=== PATIENT | female | born 1965 | race Caucasian/White ===

== ENCOUNTER 2017-11-24 11:46 | Emergency (ER) | payer OTHER ==
[2017-11-24 12:02] VITALS: BMI 27.7
--- NOTE | 2017-11-24 12:40 | PDOC ---
History of Present Illness - General History Source: Patient, Family Exam Limitations: No Limitations - History of Present Illness Initial Comments: 11/24/17 13:20 The patient is a 52 year old female with a significant PMH of diabetes, HTN, and hyperlipidemia (previously controlled with medications which were discontinued) who presents to the emergency department with epigastric pain and nausea beginning approximately 2 weeks ago. She describes her abdominal pain as localized in her epigastric region with no radiation, which is worse with eating. She also reports some intermittent diarrhea but denies vomiting. The patient denies fever, chills, and constipation. Denies chest pain, shortness of breath, headache and dizziness. Denies dysuria, frequency, urgency and hematuria. Allergies: NKA Past surgical history: None reported. Social history: No reported cigarette, alcohol, or drug use. PCP: Dr. Bourne <Marcel Loza - Last Filed: 11/24/17 13:20> <Triny Coronel - Last Filed: 11/24/17 16:45> <Wendy Goldman - Last Filed: 11/24/17 22:05> - General Chief Complaint: Pain, Acute Stated Complaint: ABD PAIN Time Seen by Provider: 11/24/17 12:37 Past History <Marcel Loza - Last Filed: 11/24/17 13:20> - Past Medical History COPD: No Diabetes: Yes HTN: Yes - Suicide/Smoking/Psychosocial Hx Smoking Status: No Smoking History: Never smoked Have you smoked in the past 12 months: No Number of Cigarettes Smoked Daily: 0 Hx Alcohol Use: No Drug/Substance Use Hx: No <Triny Coronel - Last Filed: 11/24/17 16:45> <Wendy Goldman - Last Filed: 11/24/17 22:05> - Past Medical History Allergies/Adverse Reactions: Allergies Allergy/AdvReac Type Severity Reaction Status Date / Time No Known Allergies Allergy Verified 11/24/17 12:02 Home Medications: Ambulatory Orders Chlorthalidone 25 mg PO DAILY 06/08/16 Lisinopril 5 mg PO DAILY 06/08/16 Metformin HCl 500 mg PO BID 06/08/16 Ranitidine HCl [Zantac] 150 mg PO DAILY 11/24/17 Review of Systems - Review of Systems Able to Perform ROS?: Yes Comments:: 11/24/17 13:20 GENERAL/CONSTITUTIONAL: No fever or chills. No weakness. HEAD, EYES, EARS, NOSE AND THROAT: No change in vision. No ear pain or discharge. No sore throat. CARDIOVASCULAR: No chest pain or shortness of breath. RESPIRATORY: No cough, wheezing, or hemoptysis. GASTROINTESTINAL: (+) Epigastric pain. (+) Nausea. (+) Diarrhea. No vomiting or constipation. GENITOURINARY: No dysuria, frequency, or change in urination. MUSCULOSKELETAL: No joint or muscle swelling or pain. No neck or back pain. SKIN: No rash NEUROLOGIC: No headache, vertigo, loss of consciousness, or change in strength/ sensation. ENDOCRINE: No increased thirst. No abnormal weight change. HEMATOLOGIC/LYMPHATIC: No anemia, easy bleeding, or history of blood clots. ALLERGIC/IMMUNOLOGIC: No hives or skin allergy. <Marcel Loza - Last Filed: 11/24/17 13:20> *Physical Exam - Vital Signs Last Vital Signs Temp Pulse Resp BP Pulse Ox 982 F H 115 H 16 140/79 95 11/24/17 11:59 11/24/17 11:59 11/24/17 11:59 11/24/17 11:59 11/24/17 11:59 <Marcel Loza - Last Filed: 11/24/17 13:20> - Vital Signs Last Vital Signs Temp Pulse Resp BP Pulse Ox 982 F H 115 H 16 140/79 95 11/24/17 11:59 11/24/17 11:59 11/24/17 11:59 11/24/17 11:59 11/24/17 11:59 - Physical Exam Comments: GENERAL: Awake, alert, and fully oriented. Tearful, appears anxious and uncomfortable. HEAD: No signs of trauma EYES: PERRLA, EOMI, sclera anicteric, conjunctiva clear ENT: Auricles normal inspection, hearing grossly normal, nares patent, oropharynx clear without exudates. Dry mucosa NECK: Normal ROM, supple, no lymphadenopathy, JVD, or masses LUNGS: Breath sounds equal, clear to auscultation bilaterally. No wheezes, and no crackles HEART: Regular rate and rhythm, normal S1 and S2, no murmurs, rubs or gallops ABDOMEN: Soft, +epigastric pain, normoactive bowel sounds. +Guarding, no rebound. No masses EXTREMITIES: Normal range of motion, no edema. No clubbing or cyanosis. No cords, erythema, or tenderness NEUROLOGICAL: Cranial nerves II through XII grossly intact. Normal speech, normal gait SKIN: Warm, Dry, normal turgor, no rashes or lesions noted. <Triny Coronel - Last Filed: 11/24/17 16:45> - Vital Signs Last Vital Signs Temp Pulse Resp BP Pulse Ox 98.0 F 82 18 136/76 96 11/24/17 16:30 11/24/17 16:30 11/24/17 16:30 11/24/17 16:30 11/24/17 16:30 <Wendy Goldman - Last Filed: 11/24/17 22:05> Heart Score/ECG Review - ECG Impressions Comment:: EKG read 14:22- NSR 86 bpm, no acute ST/T changes <Triny Coronel - Last Filed: 11/24/17 16:45> ED Treatment Course - Medications Given in the ED: ED Medications Discontinued Medications Generic Name Dose Route Start Last Admin Trade Name Freq PRN Reason Stop Dose Admin Acetaminophen 1,000 mg 11/24/17 12:51 11/24/17 13:17 Ofirmev Injection - IVPB 11/24/17 12:52 1,000 mg ONCE ONE Administration Ondansetron HCl 4 mg 11/24/17 12:50 11/24/17 13:17 Zofran Injection IVPUSH 11/24/17 12:51 4 mg ONCE ONE Administration <Marcel Loza - Last Filed: 11/24/17 13:20> - LABORATORY CBC & Chemistry Diagram: 11/24/17 12:52 11/24/17 12:52 <Triny Coronel - Last Filed: 11/24/17 16:45> - LABORATORY CBC & Chemistry Diagram: 11/24/17 12:52 11/24/17 12:52 - ADDITIONAL ORDERS Additional order review: Laboratory Results 11/24/17 11/24/17 13:20 12:52 Sodium 134 L Potassium 3.9 Chloride 97 L Carbon Dioxide 26 Anion Gap 11 BUN 11 Creatinine 0.7 Creat Clearance w eGFR > 60 Random Glucose 204 H Calcium 9.3 Total Bilirubin 0.3 D AST 28 ALT 47 Alkaline Phosphatase 90 Creatine Kinase 86 Troponin I < 0.02 Total Protein 8.0 Albumin 3.9 Lipase 177 Urine Color Colorless Urine Appearance Clear Urine pH 8.0 Ur Specific [place] 1.005 Urine Protein Negative Urine Glucose (UA) 3+ H Urine Ketones Negative Urine Blood Negative Urine Nitrite Negative Urine Bilirubin Negative Urine Urobilinogen Negative Ur Leukocyte Esterase Trace Urine WBC (Auto) 1 Urine RBC (Auto) 2 Ur Epithelial Cells Rare 11/24/17 12:52 RBC 4.64 MCV 86.8 MCHC 34.1 RDW 13.9 MPV 8.6 Neutrophils % 70.8 Lymphocytes % 21.6 D Monocytes % 6.5 Eosinophils % 0.4 Basophils % 0.7 - Medications Given in the ED: ED Medications Discontinued Medications Generic Name Dose Route Start Last Admin Trade Name Zhangq PRN Reason Stop Dose Admin Acetaminophen 1,000 mg 11/24/17 12:51 11/24/17 13:17 Ofirmev Injection - IVPB 11/24/17 12:52 1,000 mg ONCE ONE Administration Sodium Chloride 1,000 mls @ 1,000 mls/hr 11/24/17 12:50 11/24/17 13:16 Normal Saline - IV 11/24/17 13:49 1,000 mls/hr ASDIR STA Administration Ondansetron HCl 4 mg 11/24/17 12:50 11/24/17 13:17 Zofran Injection IVPUSH 11/24/17 12:51 4 mg ONCE ONE Administration <Wendy Goldman - Last Filed: 11/24/17 22:05> Medical Decision Making - Medical Decision Making 11/24/17 12:55 Pt presents with epigastric pain and nausea, noted to have tachycardia and epigastric tenderness on exam. DDx includes ACS, acute sylvia, pancreatitis, gastritis. Will obtain labs. Will give IV fluids, pain medication, and antiemetics. Will await labs then determine how to proceed with imaging. <Triny Coronel - Last Filed: 11/24/17 16:45> - Medical Decision Making 11/24/17 22:04 Patient Name: BENITO PEÑA THIS IS A PRELIMINARY REPORT FROM [facility] DATE OF SERVICE: 2017-11-24 21:03:29 IMAGES: [id number] EXAM: CT abdomen and pelvis with intravenous contrast HISTORY: Epigastric pain COMPARISON: Right upper quadrant ultrasound from the same date FINDINGS: The visualized lung bases are clear Normal appearance of the gallbladder There are fatty changes of the liver. The liver is normal in size and contour. The upper abdominal visceral organs are otherwise unremarkable There is no bowel distention. A normal appendix is visualized Mild to moderate fecal retention in the colon The pelvic organs are unremarkable No intra-abdominal free air, free fluid or loculated collections THIS DOCUMENT HAS BEEN ELECTRONICALLY SIGNED <Wendy Goldman - Last Filed: 11/24/17 22:05> *DC/Admit/Observation/Transfer - Attestations Scribe Attestion: 11/24/17 13:21 Documentation prepared by Marcel Loza, acting as biomedical engineering internship for Triny Coronel MD. <Marcel Loza - Last Filed: 11/24/17 13:20> <Triny Coronel - Last Filed: 11/24/17 16:45> - Discharge Dispostion Admit: No <Wendy Goldman - Last Filed: 11/24/17 22:05> Diagnosis at time of Disposition: Fatty liver, Constipation - Discharge Dispostion Disposition: HOME Condition at time of disposition: Improved - Referrals Referrals: Brisa Cherry MD [Primary Care Provider] - - Patient Instructions Printed Discharge Instructions: Nonalcoholic Fatty Liver Disease, Constipation - Post Discharge Activity
[2017-11-24] MEDS ORDERED: ONDANSETRON 4 MG/2 ML VIAL IVPUSH ONE (12:50)
[2017-11-24] MEDS ORDERED: SODIUM CHLORIDE 1,000 ML IV STA (12:50)
[2017-11-24] MEDS ORDERED: ACETAMINOPHEN 1000 MG/100 ML VIAL (NON FORMULARY) IVPB ONE (12:51)
[2017-11-24] MEDS ORDERED: ACETAMINOPHEN INJECTION 100 ML IVPB ONE (12:59)
[2017-11-24] MEDS ORDERED: ONDANSETRON 4 MG/2 ML VIAL ONE (13:00)
[2017-11-24 13:26] LABS: EOS % 0.4 % (0-4.5)
[2017-11-24 13:30] LABS: URINE APPEARANCE CLEAR; URINE BILIRUBIN NEGATIVE (NEGATIVE); URINE BLOOD NEGATIVE (NEGATIVE); URINE COLOR COLORLESS; URINE GLUCOSE (UA) 3+ (NEGATIVE); URINE KETONE NEGATIVE (NEGATIVE); URINE LEUK ESTERASE TRACE (NEGATIVE); URINE NITRITE NEGATIVE (NEGATIVE); URINE PROTEIN NEGATIVE (NEGATIVE); URINE UROBILINOGEN NEGATIVE mg/dL (0.2-1.0)
[2017-11-24 13:37] LABS: BASO % 0.7 % (0-2.0); HEMATOCRIT 40.3 % (32.4-45.2); HEMOGLOBIN 13.7 GM/dL (10.7-15.3); LYMPH % 21.6 % (8-40); MCH 29.6 pg (25.7-33.7); MCHC 34.1 g/dl (32.0-36.0); MEAN CELL VOLUME 86.8 fl (80-96); MEAN PLT VOLUME 8.6 fl (7.5-11.1); MONO % 6.5 % (3.8-10.2); NEUT % 70.8 % (42.8-82.8); PLATELET COUNT 298 K/MM3 (134-434); RBC 4.64 M/mm3 (3.60-5.2); RDW 13.9 % (11.6-15.6); WHITE BLOOD COUNT 12.4 K/mm3 (4.0-10.0)
[2017-11-24 13:45] LABS: EPI CELLS RARE /HPF (FEW)
[2017-11-24 14:06] LABS: ALBUMIN 3.9 g/dl (3.4-5.0); ANION GAP 11 (8-16); BILIRUBIN,TOTAL 0.3 mg/dL (0.2-1.0); BLOOD UREA NITROGEN 11 mg/dL (7-18); CALCIUM 9.3 mg/dL (8.5-10.1); CHLORIDE 97 mmol/L (98-107); CO2 26 mmol/L (21-32); CREATININE 0.7 mg/dL (0.55-1.02); GLUCOSE,RANDOM 204 mg/dL (74-106); LIPASE 177 U/L (73-393); SGPT/ALT 47 U/L (12-78); SODIUM 134 mmol/L (136-145)
[2017-11-24 14:09] LABS: ALK PHOS 90 U/L (45-117)
[2017-11-24 14:11] LABS: SGOT/AST 28 U/L (15-37)
[2017-11-24 14:12] LABS: POTASSIUM 3.9 mmol/L (3.5-5.1)
[2017-11-24 22:31] VITALS: BP 128/70; PULSE 80; TEMP 97.8
--- NOTE | 2017-11-25 14:25 | EKG ---
Test Reason : Blood Pressure : / mmHG Vent. Rate : 086 BPM Atrial Rate : 086 BPM P-R Int : 118 ms QRS Dur : 086 ms QT Int : 382 ms P-R-T Axes : 045 019 068 degrees QTc Int : 457 ms POOR DATA QUALITY, INTERPRETATION MAY BE ADVERSELY AFFECTED NORMAL SINUS RHYTHM NONSPECIFIC ST ABNORMALITY ABNORMAL ECG Confirmed by MD JAKE, BEVERLEY ([id number]) on 11/25/2017 2:25:00 PM Referred By: Confirmed By:BEVERLEY JOSEPH MD
== END 2017-11-24 22:31 | disposition home or self-care (01) ==
LOC: JER 11:46
PROC: 3E033NZ Introduction of Analgesics, Hypnotics, Sedatives into Peripheral Vein, Percutaneous Approach (ICD-10-PCS; principal; 2017-11-24)
PROC: 3E033GC Introduction of Other Therapeutic Substance into Peripheral Vein, Percutaneous Approach (ICD-10-PCS; 2017-11-24)
PROC: 3E0337Z Introduction of Electrolytic and Water Balance Substance into Peripheral Vein, Percutaneous Approach (ICD-10-PCS; 2017-11-24)
DX: K59.00 Constipation, unspecified (principal)
CPT/HCPCS: 36415; 74177-TC; 76705-TC; 80053; 81003; 81015; 82550; 83690; 84484; 85025; 93005; 93010; 99283-25